=== PATIENT | female | born 1970 | race Caucasian/White ===

== ENCOUNTER 2021-06-15 17:30 | Emergency (ER) | payer OTHER ==
[~2021-06-15] VITALS: Ht 157.5 cm; Wt 74.8 kg
[2021-06-15 17:45] VITALS: BP_SYST 139
[2021-06-15] MEDS: KETOROLAC TROMETHAMINE 60 MG/2 ML VIAL IM ONE (18:27)
[2021-06-15] MEDS: HYDROcodone/ACETAMIN 5-325 MG TAB (NORCO/ VICODIN) PO ONE (18:28)
[2021-06-15] MEDS ORDERED: IBUP-1969 PO (18:55)
[2021-06-15] MEDS ORDERED: SOM350 PO (18:55)
[2021-06-15 20:56] VITALS: BP_SYST 138
== END 2021-06-15 20:56 | disposition home or self-care (01) ==
LOC: SED 17:30
DX: M43.6 Torticollis (principal); Z79.899 Other long term (current) drug therapy
CPT/HCPCS: 72040; 81025; 96372; 99283; J1885

== ENCOUNTER 2021-07-01 11:13 | Emergency (ER) | payer MEDICAID ==
[~2021-07-01] VITALS: Ht 157.5 cm; Wt 74.8 kg
[2021-07-01 11:13] VITALS: BP_SYST 153
[~2021-07-01 11:13] MED LIST: IBUP-1969 PO; SOM350 PO
--- NOTE | 2021-07-01 11:14 | NUR ---
Patient to ER bed to gown for evaluation. Side rails up.
--- NOTE | 2021-07-01 11:15 | NUR ---
Pt walked in to ER with c/o right shoulder and neck pain, 3/10, numbness and tingling down BUE. Was here a couple of days ago but the pain is still there. V/S stable, no acute distress noted.
--- NOTE | 2021-07-01 11:35 | NUR ---
ER Dr. Michael at bedside examining patient.
[2021-07-01 11:43] VITALS: BP_SYST 153
--- NOTE | 2021-07-01 11:45 | NUR ---
Patient transported to radiology via ambulatory, accompanied by staff.
--- NOTE | 2021-07-01 12:20 | NUR ---
DR JUSTICE AT BEDSIDE FOR EVALUATION
[2021-07-01] MEDS ORDERED: NEU300 PO (12:32)
--- NOTE | 2021-07-01 12:39 | NUR ---
Patient given written and verbal discharge instructions and verbalizes understanding. ER MD discussed with patient the results and treatment provided. Patient in stable condition. ID arm band removed. Rx of GABAPENTIN given. Patient educated on pain management and to follow up with PMD. Pain Scale 0/10. Opportunity for questions provided and answered. Medication side effect fact sheet provided.
== END 2021-07-01 12:39 | disposition home or self-care (01) ==
LOC: SED 11:13
DX: M54.12 Radiculopathy, cervical region (principal); Z79.899 Other long term (current) drug therapy
CPT/HCPCS: 73030; 99283